=== PATIENT | female | born 1965 | race Caucasian/White ===

== ENCOUNTER 2020-08-17 22:13 | Emergency (ER) | payer OTHER ==
[~2020-08-17 22:13] MED LIST: AMOXICILLIN500 MG PO; IBU800 MG PO; MACROBID100 MG PO; MUCINEX 600MG600 MG PO; SUDAFED30 MG PO; ZOFRAN8 MG PO
[2020-08-17] MEDS ORDERED: DICLOFENAC SODI75 MG PO (23:46)
== END 2020-08-18 00:07 | disposition home or self-care (01) ==
LOC: FER 22:13
DX: S63.501A Unspecified sprain of right wrist, initial encounter (principal); I10 Essential (primary) hypertension; E11.9 Type 2 diabetes mellitus without complications; W31.9XXA Contact with unspecified machinery, initial encounter; Y92.009 Unspecified place in unspecified non-institutional (private) residence as the place of occurrence of the external cause
CPT/HCPCS: 73100

== ENCOUNTER 2020-10-16 08:37 | Emergency (ER) | payer OTHER ==
[~2020-10-16 08:37] MED LIST changes: +DICLOFENAC SODI75 MG PO
[2020-10-16 09:48] LABS: CORONAVIRUS 2019 SARS-COV-2 NEGATIVE (NEGATIVE); INFLUENZA A NAA NEGATIVE (NEGATIVE)
[2020-10-16 10:25] LABS: BASOPHIL 1.2 % (0-2); EOSINOPHIL 3.4 % (0-5); HCT 39.9 % (37.0-47.0); HGB 13.3 g/dl (12.5-16.0); LYMPHOCYTE 33.1 % (15-48); MCH 29.7 pg (25.0-31.0); MCHC 33.3 g/dL (32.0-36.0); MCV 89.1 fL (78.0-100.0); MONOCYTE 5.6 % (0-12); MPV 11.9 fL (6.0-9.5); NEUTROPHIL 56.3 % (41-80); NRBC 0; PLT 260 K/uL (150-400); RBC 4.48 M/uL (4.20-5.40); RDW 12.5 % (11.5-14.0); WBC 6.8 K/uL (4.0-10.5)
[2020-10-16 10:33] LABS: BUN/CREAT RATIO (CALC) 20.2 RATIO; CREATININE 0.89 mg/dL (0.51-0.95); POTASSIUM 4.5 mmol/L (3.5-5.1)
== END 2020-10-16 10:42 | disposition home or self-care (01) ==
LOC: FER 08:37
PROVIDERS: Emergency Medicine
DX: B34.9 Viral infection, unspecified (principal); E11.9 Type 2 diabetes mellitus without complications; I10 Essential (primary) hypertension; Z20.822 Contact with and (suspected) exposure to COVID-19; Z88.8 Allergy status to other drugs, medicaments and biological substances
CPT/HCPCS: 36415; 71045; 80048; 85025; U0002